=== PATIENT | female | born 1955 | race African-American/Black ===

== ENCOUNTER 2020-06-26 14:48 | Emergency (ER) | payer SELFPAY ==
--- NOTE | 2020-06-26 16:04 | ULT ---
ULTRASOUND DOPPLER DUPLEX VENOUS RIGHT LOWER EXTREMITY: DATE: 06/26/2020 HISTORY: Right lower extremity pain and swelling in 65-year-old female TECHNIQUE: Grayscale, color-flow, and spectral analysis, of major veins of right lower extremity. FINDINGS: There is demonstration of blood flow with normal compressibility, of the right common femoral, profun da femoral, greater saphenous, femoral, popliteal, and posterior tibial, veins. IMPRESSION: Negative. No deep venous thrombosis of right lower extremity.
== END 2020-06-26 16:53 | disposition home or self-care (01) ==
LOC: ERS 14:48
DX: M79.604 Pain in right leg (principal); I10 Essential (primary) hypertension